=== PATIENT | male | born 1985 | race African-American/Black ===

== ENCOUNTER 2017-10-03 11:10 | Emergency (ER) | payer MEDICAID, OTHER ==
[~2017-10-03] VITALS: Ht 190.5 cm; Wt 107.1 kg
[2017-10-03 11:14] VITALS: Ht 190.5 cm; Wt 107.1 kg
[2017-10-03] MEDS ORDERED: SILVER SULFADIAZINE 1% 25 GM CR TOP STA (11:40)
[2017-10-03] MEDS ORDERED: SILV20CR13 TOP (11:44)
[2017-10-03] MEDS ORDERED: DIPHTH/TET/ACEL PERTUSS (ADULT) 0.5 ML VIAL IM* ONE (12:00)
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
== END 2017-10-03 12:13 | disposition home or self-care (01) ==
LOC: FTE 11:10
DX: T23.201A Burn of second degree of right hand, unspecified site, initial encounter (principal); X08.8XXA Exposure to other specified smoke, fire and flames, initial encounter; Y92.9 Unspecified place or not applicable
CPT/HCPCS: 16025; Z7502; Z7610